=== PATIENT | female | born 1940 | race Caucasian/White ===

== ENCOUNTER 2019-02-14 11:03 | Emergency (ER) | payer MEDICARE, BC ==
[~2019-02-14] VITALS: Ht 152.4 cm; Wt 50.8 kg
--- NOTE | ~2019-02-14 | EKG ---
[place], [place] ELECTROCARDIOGRAM REPORT NAME: IKE BARKER UNIT #: [id number] ROOM: DOCTOR: GIRISH DRAFT REPORT BIRTHDATE: [birth year] [facility] Test Date: 2019-02-14 Test Time: 11:38:47 Pat Name: IKE BARKER Department: Room: Gender: F Lodging House Keeper: Eden Lopez : 1940 Requested By: KAREEM BURT Order Number: [id number] Reading MD: Malena Saavedra MD Measurements Intervals [place] Rate: 73 P: 28 MI: 159 QRS: -6 QRSD: 89 T: 116 QT: 387 QTc: 427 Interpretive Statements Sinus rhythm LVH with secondary repolarization abnormality No previous ECG available for comparison Electronically Signed On 02-16-2019 7:45:02 PDT by Malena Saavedra MD CM:EKGRPT:ELECTROCARDIOGRAM REPORT [id number] KAREEM PAYTON DRAFT REPORT KAREEM BURT DO
[2019-02-14 11:58] LABS: BASO % 0.4 % (0.0-1.0); EOS % 0.6 % (1.0-4.0); HEMATOCRIT 41.4 % (37.0-47.0); HEMOGLOBIN 13.6 g/dl (12.0-16.0); LYMPH # 0.7 10*3/uL (1.3-4.4); MEAN CELL VOLUME 96.5 fl (81.0-99.0); MEAN CORPUSCULAR HGB 31.7 pg (27.0-31.0); MEAN CORPUSCULAR HGB CONC 32.9 g/dl (33.0-37.0); MEAN PLATELET VOLUME 11.8 fl (9.6-12.3); MONO # 0.4 10*3/uL (0.1-1.0); MONO % 4.8 % (3.0-9.0); NEUT # 6.1 10*3/uL (2.3-7.9); NEUT % 83.9 % (47.0-73.0); PLATELET COUNT AUTOMATED 182 10*3/uL (130-400); RED BLOOD COUNT 4.29 10*6/uL (4.10-5.10); RED CELL DISTRI WIDTH 12.5 % (0-14.5); WHITE BLOOD COUNT 7.2 10*3/uL (4.8-10.8)
[2019-02-14 12:09] LABS: ACT PARTIAL THROMBO TIME 22.9 SECONDS (20.0-32.1); INTERNATIONAL NORM RATIO 0.9 (2.0-3.5)
[2019-02-14 12:15] LABS: ALKALINE PHOSPHATASE 127 U/L (45-117); BUN 19 mg/dl (7-24); CHLORIDE 109 mmol/L (98-107); CREATININE 0.64 mg/dL (0.55-1.02); LIPASE 96 U/L (73-393); POTASSIUM 3.5 mmol/L (3.5-5.1); SGOT/AST 16 IU/L (3-35); SGPT/ALT 22 U/L (12-78); SODIUM 144 mmol/L (136-145)
[2019-02-14 12:18] LABS: TROPONIN I < 0.015 ng/ml (<0.045)
[2019-02-14 13:53] LABS: BILIRUBIN NEGATIVE (NEGATIVE); BLOOD NEGATIVE (NEGATIVE); CLARITY SL CLOUDY (CLEAR); COLOR YELLOW (YELLOW); GLUCOSE NEGATIVE (NEGATIVE); KETONE NEGATIVE (NEGATIVE); LEUKO ESTERASE NEGATIVE (NEGATIVE); NITRITE NEGATIVE (NEGATIVE); UROBILINOGEN 0.2 E.U./dl (0.2-1.0)
[2019-02-14 14:26] LABS: BACTERIA 2+
== END 2019-02-14 13:38 | disposition short-term general hospital (02) ==
LOC: ED 11:03
PROVIDERS: Emergency Medicine
DX: S72.141A Displaced intertrochanteric fracture of right femur, initial encounter for closed fracture (principal); Z88.8 Allergy status to other drugs, medicaments and biological substances; W01.0XXA Fall on same level from slipping, tripping and stumbling without subsequent striking against object, initial encounter; Y93.01 Activity, walking, marching and hiking; Y92.098 Other place in other non-institutional residence as the place of occurrence of the external cause; Y99.8 Other external cause status